=== PATIENT | male | born 1945 | race Caucasian/White ===

== ENCOUNTER 2022-03-25 08:29 | Outpatient (CLI) | payer MEDICARE, OTHER | END 2022-03-25 08:30 | disposition home or self-care (01) | LOC: BICMRI 08:29 | PROVIDERS: ATTEND Otolaryngology Plastic Surgery within the Head & Neck | DX: C05.9 Malignant neoplasm of palate, unspecified (principal) | CPT/HCPCS: 70543; 82565 ==

== ENCOUNTER 2023-07-08 12:52 | Outpatient (CLI) | payer MEDICARE, OTHER ==
[~2023-07-08 12:52] MED LIST: Iopamidol 370 76% 100 ML VIAL ONE
== END 2023-07-08 12:53 | disposition home or self-care (01) ==
LOC: BICCT 12:52
PROVIDERS: ATTEND Otolaryngology Plastic Surgery within the Head & Neck
DX: C05.9 Malignant neoplasm of palate, unspecified (principal); J39.2 Other diseases of pharynx
CPT/HCPCS: 70491; 82565; Q9967